=== PATIENT | male | born 1985 | race Caucasian/White ===

== ENCOUNTER 2016-08-12 11:06 | Emergency (ER) | payer OTHER ==
[2016-08-12 12:27] LABS: HEMOGLOBIN 13.2 gm/dl (14.0-17.5); RED BLOOD COUNT 4.34 M/UL (4.20-5.50); WHITE BLOOD COUNT 6.3 K/UL (4.5-11.0)
== END 2016-08-12 15:00 | disposition home or self-care (01) ==
LOC: ER1 11:06
PROVIDERS: Family Medicine
DX: R10.9 Unspecified abdominal pain (principal); E10.9 Type 1 diabetes mellitus without complications; R11.2 Nausea with vomiting, unspecified; E86.0 Dehydration; Z79.4 Long term (current) use of insulin
CPT/HCPCS: 36415; 80053; 81001; 82009; 82962; 83690; 85025; 96374; 99284; J2405; J7030

== ENCOUNTER 2016-12-19 08:30 | Emergency (ER) | payer OTHER ==
[2016-12-19 10:32] LABS: HEMOGLOBIN 11.5 gm/dl (14.0-17.5); RED BLOOD COUNT 3.81 M/UL (4.20-5.50); WHITE BLOOD COUNT 7.1 K/UL (4.5-11.0)
== END 2016-12-19 14:55 | disposition left against medical advice (07) ==
LOC: ER1 08:30
PROVIDERS: Emergency Medicine
DX: K52.9 Noninfective gastroenteritis and colitis, unspecified (principal); E11.10 Type 2 diabetes mellitus with ketoacidosis without coma; I10 Essential (primary) hypertension
CPT/HCPCS: 36415; 71020; 80053; 82009; 82800; 83690; 85025; 87040; 87081; 87880; 96361; 96374; 96376; 99284; J2405; J7030

== ENCOUNTER 2020-05-11 20:25 | Emergency (ER) | payer OTHER ==
[~2020-05-11 20:25] MED LIST: DIFLUCAN200 MG PO; HUMALOG100 UNIT/3 SQ; K-DUR TAB 20 M20 MEQ PO; KEFLEX CAP 500500 MG PO; MYCOSTATIN100000 UTS PO; NOVOLOG100 UNIT/1 SQ; OMNICEF 300 MG300 MG PO; ORBACTIV IV; POTASSIUM20 MEQ/15 PO; PROTONIX 40 MG40 M1 PO; PROTONIX40 MG PO; TRESIBA SQ
[2020-05-11 21:10] LABS: HEMOGLOBIN 9.6 gm/dl (14.0-17.5); RED BLOOD COUNT 3.25 M/UL (4.20-5.50); WHITE BLOOD COUNT 11.5 K/UL (4.5-11.0)
== END 2020-05-11 23:55 | disposition home or self-care (01) ==
LOC: ER1 20:25
PROVIDERS: Emergency Medicine
DX: E87.70 Fluid overload, unspecified (principal); E11.9 Type 2 diabetes mellitus without complications
CPT/HCPCS: 36415; 71046; 80053; 81001; 82550; 82553; 83690; 83874; 83880; 84484; 85025; 93005; 99284